=== PATIENT | female | born 1975 | race Caucasian/White ===

== ENCOUNTER → 2017-12-08 09:56 | Outpatient (REF) | payer MEDICAID, SELFPAY ==
[2017-12-08 21:06] LABS: Anion Gap 8.4 mmol/L (3-11); BUN 14 mg/dL (7-18); CO2 27.6 mmol/L (21.0-32.0); Chloride 103 mmol/L (98-107); Glucose 90 mg/dL (70-100); Sodium 139 mmol/L (136-145); TSH 2.62 uIU/mL (0.358-3.74)
[2017-12-08 21:14] LABS: Hemoglobin A1C 5.5 % (4.5-6.2)
== END ==
LOC: NCHCN 09:56
PROVIDERS: PCP Nurse Practitioner Family; Visit Provider Nurse Practitioner Family
DX: F32.9 Major depressive disorder, single episode, unspecified (principal); E03.9 Hypothyroidism, unspecified; F17.200 Nicotine dependence, unspecified, uncomplicated; I87.2 Venous insufficiency (chronic) (peripheral); E66.9 Obesity, unspecified
CPT/HCPCS: 80048; 83036; 84443

== ENCOUNTER 2018-11-07 10:39 | Outpatient (REF) | payer MEDICAID, SELFPAY ==
[2018-11-07 22:55] LABS: TSH (W/Ref FT4) 6.05 uIU/mL (0.358-3.74)
[2018-11-07 23:15] LABS: FREE T4 1.02 ng/dL (0.76-1.46)
== END 2018-11-07 10:59 ==
LOC: NCHCN 10:39
PROVIDERS: PCP Nurse Practitioner Family; Visit Provider Nurse Practitioner Family
DX: E03.9 Hypothyroidism, unspecified (principal)
CPT/HCPCS: 84439; 84443

== ENCOUNTER 2019-02-25 09:01 | Outpatient (REF) | payer MEDICAID, SELFPAY ==
[2019-02-25 22:05] LABS: TSH (W/Ref FT4) 0.76 uIU/mL (0.36-3.74)
== END 2019-02-25 09:21 ==
LOC: NCHCN 09:01
PROVIDERS: PCP Nurse Practitioner Family; Visit Provider Nurse Practitioner Family
DX: E03.9 Hypothyroidism, unspecified (principal)
CPT/HCPCS: 84443

== ENCOUNTER 2020-04-27 17:13 | Outpatient (REF) | payer MEDICAID, SELFPAY ==
[2020-04-27 21:00] LABS: TSH 5.54 uIU/mL (0.36-3.74)
== END 2020-04-27 17:33 ==
LOC: NCHCN 17:13
PROVIDERS: PCP Nurse Practitioner Family; Visit Provider Nurse Practitioner Family
DX: E03.9 Hypothyroidism, unspecified (principal)
CPT/HCPCS: 84443

== ENCOUNTER 2020-07-27 16:24 | Outpatient (REF) | payer MEDICAID, SELFPAY ==
[2020-07-27 22:03] LABS: Anion Gap 8.8 mmol/L (3-11); BUN 15 mg/dL (7-18); CO2 27.2 mmol/L (21.0-32.0); CREATININE 0.9 mg/dL (0.55-1.02); Calcium 9.1 mg/dL (8.5-10.1); Chloride 106 mmol/L (98-107); Glucose 83 mg/dL (74-106); Potassium 4.3 mmol/L (3.5-5.1); Sodium 142 mmol/L (136-145); TSH 1.55 uIU/mL (0.36-3.74)
== END 2020-07-27 16:25 | disposition home or self-care (01) ==
LOC: NCHCN 16:24
PROVIDERS: PCP Nurse Practitioner Family; Visit Provider Nurse Practitioner Community Health
DX: E03.9 Hypothyroidism, unspecified (principal); Z79.899 Other long term (current) drug therapy
CPT/HCPCS: 80048; 84443

== ENCOUNTER 2020-12-25 16:38 | Outpatient (REF) | payer MEDICAID, SELFPAY ==
[2020-12-25 21:26] LABS: Hemoglobin A1C 5.5 % (<5.7)
[2020-12-25 21:34] LABS: Anion Gap 11.1 mmol/L (3-11); BUN 16 mg/dL (7-18); CO2 24.9 mmol/L (21.0-32.0); CREATININE 0.9 mg/dL (0.55-1.02); Calcium 9.1 mg/dL (8.5-10.1); Calculated LDL 99 mg/dL (<100); Chloride 106 mmol/L (98-107); Cholesterol 165 mg/dL (<200); Glucose 82 mg/dL (74-106); HDL Cholesterol 55 mg/dL (40-60); Potassium 3.9 mmol/L (3.5-5.1); Sodium 142 mmol/L (136-145); Triglyceride 57 mg/dL (<150)
== END 2020-12-25 16:39 | disposition home or self-care (01) ==
LOC: NCHCN 16:38
PROVIDERS: PCP Nurse Practitioner Family; Visit Provider Nurse Practitioner Family
DX: E66.01 Morbid (severe) obesity due to excess calories (principal); Z13.220 Encounter for screening for lipoid disorders; Z13.1 Encounter for screening for diabetes mellitus
CPT/HCPCS: 80048; 80061; 83036

== ENCOUNTER 2021-06-14 16:32 | Outpatient (REF) | payer MEDICAID, SELFPAY ==
[2021-06-14 21:29] LABS: Hemoglobin A1C 5.5 % (<5.7)
[2021-06-14 21:39] LABS: TSH 1.54 uIU/mL (0.36-3.74)
== END 2021-06-14 16:33 | disposition home or self-care (01) ==
LOC: NCHCN 16:32
PROVIDERS: PCP Nurse Practitioner Family; Visit Provider Nurse Practitioner Family
DX: E03.9 Hypothyroidism, unspecified (principal); Z13.1 Encounter for screening for diabetes mellitus; E66.01 Morbid (severe) obesity due to excess calories
CPT/HCPCS: 83036; 84443

== ENCOUNTER 2021-12-20 16:45 | Outpatient (REF) | payer MEDICAID, SELFPAY ==
--- NOTE | 2021-12-20 14:40 | PAPFT_PTH ---
PATIENT: Darshana Castro LOC: [facility]#:[id number] AGE/SX: 46/F ROOM: RE12/20/[address]: Arlen Welsh : 1975 BED: DIS: 12/20/2021 SPEC #: [id number] RECD: 12/21/21 09:17 STATUS: PARUL REQ #: [id number] LISE: 12/20/21 14:[address]: Arlen Santacruz DEPT: [facility] Cytology RECD BY: Angeles Jerez ENTERED: 12/21/21 09:18 SP TYPE: PAPFT OTHR DR: Shivani Sanchez Tissues: 1 - CX/ENDOCX FOR PAP SMEARS Procedures: PAP THIN PREP/[facility] Screening HPV DNA PROBE Comments: [id number] (CHLAMYDIA/GC)
[2021-12-22 15:31] LABS: Chlamydia Result Negative (Negative); GC Result Negative (Negative)
== END 2021-12-20 16:46 | disposition home or self-care (01) ==
LOC: NCHCN 16:45
PROVIDERS: PCP Nurse Practitioner Family; Visit Provider Nurse Practitioner Family
DX: Z11.3 Encounter for screening for infections with a predominantly sexual mode of transmission (principal); Z12.4 Encounter for screening for malignant neoplasm of cervix; R87.611 Atypical squamous cells cannot exclude high grade squamous intraepithelial lesion on cytologic smear of cervix (ASC-H); Z11.51 Encounter for screening for human papillomavirus (HPV); R87.810 Cervical high risk human papillomavirus (HPV) DNA test positive
CPT/HCPCS: 87491; 87591; 88142; 87624

== ENCOUNTER 2022-01-24 18:16 | Outpatient (REF) | payer MEDICAID, SELFPAY ==
[2022-01-24 21:08] LABS: TSH 1.08 uIU/mL (0.36-3.74)
== END 2022-01-24 18:17 | disposition home or self-care (01) ==
LOC: NCHCN 18:16
PROVIDERS: PCP Nurse Practitioner Family; Visit Provider Nurse Practitioner Family
DX: E03.9 Hypothyroidism, unspecified (principal)
CPT/HCPCS: 84443

== ENCOUNTER 2023-10-13 14:32 | Outpatient (REF) | payer MEDICAID, SELFPAY ==
[2023-10-13 23:23] LABS: HIV-1/2 Ag & Ab Screen Negative (Negative)
[2023-10-14 13:26] LABS: Chlamydia Result Negative (Negative); GC Result Negative (Negative)
== END 2023-10-13 14:33 | disposition home or self-care (01) ==
LOC: NCHCN 14:32
PROVIDERS: PCP Nurse Practitioner Family; Visit Provider Registered Nurse
DX: Z20.2 Contact with and (suspected) exposure to infections with a predominantly sexual mode of transmission (principal); Z11.3 Encounter for screening for infections with a predominantly sexual mode of transmission; Z11.4 Encounter for screening for human immunodeficiency virus [HIV]
CPT/HCPCS: 87389; 87491; 87591

== ENCOUNTER 2023-11-27 08:52 | Outpatient (REF) | payer MEDICAID, SELFPAY ==
[2023-11-27 15:00] LABS: ALT 27 U/L (14-59); AST 17 U/L (15-37); Albumin 3.2 g/dL (3.4-5.0); Alkaline Phosphatase 70 U/L (46-116); Anion Gap 7.5 mmol/L (3-11); BUN 11 mg/dL (7-18); Bilirubin, Total 0.23 mg/dL (0.2-1.0); CO2 28.5 mmol/L (21.0-32.0); CREATININE 0.8 mg/dL (0.55-1.02); Calcium 8.7 mg/dL (8.5-10.1); Chloride 106 mmol/L (98-107); Estimated GFR 91.97 (mL/min/1.73m2); Glucose 107 mg/dL (74-106); Potassium 4.5 mmol/L (3.5-5.1); Sodium 142 mmol/L (136-145); TSH 0.64 uIU/Ml (0.36-3.74); Total Protein 6.7 g/dL (6.4-8.2)
[2023-11-27 15:05] LABS: Hemoglobin A1C 5.4 % (<5.7)
== END 2023-11-27 08:53 | disposition home or self-care (01) ==
LOC: NCHCN 08:52
PROVIDERS: PCP Nurse Practitioner Family; Visit Provider Nurse Practitioner Family
DX: E03.9 Hypothyroidism, unspecified (principal); R73.09 Other abnormal glucose; E66.01 Morbid (severe) obesity due to excess calories
CPT/HCPCS: 80053; 83036; 84443

== ENCOUNTER 2024-03-05 12:44 | Outpatient (REF) | payer MEDICAID, SELFPAY ==
--- NOTE | 2024-03-05 09:30 | PAPFT_PTH ---
PATIENT: Darshana Catsro LOC: [facility] U#:[id number] AGE/SX: 48/F ROOM: RE03/05/[address]: Arlen Welsh : 1975 BED: DIS: 03/05/2024 SPEC #: [id number] RECD: 03/05/24 18:00 STATUS: PARUL RESue #: [id number] LISE: 03/05/24 09:[address]: Arlen Santacruz DEPT: [facility] Cytology RECD BY: Marilyn Ayers ENTERED: 03/05/24 18:01 SP TYPE: PAPFT OTHR DR: Shivani Sanchez Tissues: 1 - CX/ENDOCX FOR PAP SMEARS Procedures: PAP THIN PREP/[facility] Screening HPV DNA PROBE Comments: [id number] (HPV 16 & 18/45)
== END 2024-03-05 12:45 | disposition home or self-care (01) ==
LOC: NCHCN 12:44
PROVIDERS: PCP Nurse Practitioner Family; Visit Provider Nurse Practitioner Family
DX: Z12.4 Encounter for screening for malignant neoplasm of cervix (principal); Z72.51 High risk heterosexual behavior
CPT/HCPCS: 88142; 87624

== ENCOUNTER 2025-03-10 10:22 | Outpatient (REF) | payer SELFPAY ==
--- NOTE | 2025-03-10 08:15 | PAPFT_PTH ---
PATIENT: Darshana Castro LOC: [facility] U#:[id number] AGE/SX: 49/F ROOM: RE03/10/[address]: Arlen Welsh : 1975 BED: DIS: 03/10/2025 SPEC #: [id number] RECD: 03/10/25 18:08 STATUS: PARUL EVANS #: [id number] LISE: 03/10/25 08:[address]: Arlen Santacruz DEPT: [facility] Cytology RECD BY: Marilyn Ayers ENTERED: 03/10/25 18:08 SP TYPE: PAPFT OTHR DR: Shivani Sanchez Tissues: 1 - CX/ENDOCX FOR PAP SMEARS Procedures: PAP THIN PREP/[facility] Screening HPV DNA PROBE Comments: [id number] (HPV 16 & 18/45)
[2025-03-10 16:12] LABS: HCT 41.2 % (36.0-46.0); HGB 13.8 g/dL (11.2-15.7); MCH 29.1 pg (27.0-33.0); MCHC 33.5 % (32.0-36.0); MCV 87 fL (80-95); MPV 9.1 fL (8.0-11.0); Platelet Count 272 10^3/uL (130-400); RBC 4.74 10^6/uL (3.93-5.22); RDW 11.9 % (11.7-14.6); RDW-SD 38.0 fL; WBC 7.39 10^3/uL (4.4-10.8)
[2025-03-10 16:38] LABS: Anion Gap 6.6 mmol/L (3-11); BUN 14 mg/dL (7-18); CO2 29.4 mmol/L (21.0-32.0); Calcium 8.9 mg/dL (8.5-10.1); Chloride 105 mmol/L (98-107); Cholesterol 172 mg/dL (<200); Glucose 92 mg/dL (74-106); HDL Cholesterol 57 mg/dL (>or=50); Potassium 4.2 mmol/L (3.5-5.1); Sodium 141 mmol/L (136-145); TSH 4.35 uIU/mL (0.36-3.74)
[2025-03-10 17:16] LABS: Hemoglobin A1C 5.5 % (<5.7)
== END 2025-03-10 10:23 | disposition home or self-care (01) ==
LOC: NCHCN 10:22
PROVIDERS: PCP Nurse Practitioner Family; Visit Provider Nurse Practitioner Family
DX: Z13.1 Encounter for screening for diabetes mellitus (principal); Z13.0 Encounter for screening for diseases of the blood and blood-forming organs and certain disorders involving the immune mechanism; E66.01 Morbid (severe) obesity due to excess calories; E03.9 Hypothyroidism, unspecified; Z13.220 Encounter for screening for lipoid disorders
CPT/HCPCS: 80048; 80061; 85027; 88142; 83036; 84443; 87624